=== PATIENT | female | born 1995 | race Asian ===

== ENCOUNTER → 2017-05-11 | Outpatient (CLI) | payer OTHER ==
--- NOTE | 2017-05-11 15:22 | MAMMOGRAPHY REPORT ---
ULTRASOUND OF BOTH BREASTS: 05/11/2017 CLINICAL HISTORY: The patient reports a palpable thickening in the right breast, which fluctuates in size and is more noticeable before her menses. She also reports a similar finding in the left breast although less prominent. COMPARISON: No prior exams were available for comparison. TECHNIQUE: Real-time targeted ultrasound of both breasts was performed. FINDINGS: Real-time, high-resolution ultrasound was performed of the area of the palpable finding poi nted out by the patient, centered around the right subareolar breast and periareolar breast, predomin antly laterally in the periareolar breast. Ultrasound was also performed of a similar region in the left breast. Sonographically normal tissue is seen, without evidence of a suspicious mass or other s uspicious sonographic abnormality. IMPRESSION: ACR BI-RADS CATEGORY 2: BENIGN No suspicious sonographic abnormality at the sites of the palpable bilateral abnormalities pointed ou t by the patient. There is no targeted sonographic evidence of malignancy. Recommend clinical follo w-up. The patient was verbally notified of the results. Clemencia Edwards M.D. ah/:05/11/2017 11:38:14 Manager Zone: Heidi OLIVEIRA)(Eliane), [facility] letter sent: Normal 1/2 BI-RADS Code: ACR BI-RADS Category 2: Benign
== END | disposition home or self-care (01) ==
LOC: C.MAMM 11:14
PROVIDERS: ATTEND Nurse Practitioner Women's Health
DX: N63.10 Unspecified lump in the right breast, unspecified quadrant (principal)